=== PATIENT | male | born 1960 | race Caucasian/White ===

== ENCOUNTER 2019-07-11 05:20 | Day surgery (SDC) | payer OTHER ==
[~2019-07-11] VITALS: Ht 177.8 cm; Wt 91.8 kg
[~2019-07-11 05:20] MED LIST: ASPI-728 PO; CYCLOPENTOLATE HCL 1% 2 ML OPHTHALMIC SOLUTION ONE; KETOROLAC TROMETHAMINE 0.5% 5 ML OPHTHALMIC SOLUTION ONE; MOXIFLOXACIN HCL 0.5% 3 ML OPHTHALMIC SOLUTION ONE; PHENYLEPHRINE HCL 2.5% 2 ML OPHTHALMIC SOLUTION ONE; RINGERS SOLUTION,LACTATED 500 ML IV ONE; TETRACAINE HCL/PF 0.5% 4 ML OPHTHALMIC SOLUTION ONE; TROPICAMIDE 1% 2 ML OPHTHALMIC SOLUTION ONE
[2019-07-11] MEDS ORDERED: MIDAZOLAM HCL 2 MG/2 ML VIAL IVP ONE (05:21)
[2019-07-11] MEDS ORDERED: FentaNYL CITRATE-PF 100 MCG/2 ML VIAL IVP ONE (05:21)
[2019-07-11] MEDS ORDERED: HYALURONATE SODIUM 12 MG/ML 0.8 ML SYRINGE IO ONE (05:21)
[2019-07-11] MEDS ORDERED: NEOMYCIN/POLYMYXIN B/DEXAMETH 3.5 GM OPHTHALMIC OINTMENT OS ONE (05:21)
[2019-07-11] MEDS ORDERED: LIDOCAINE/PF 1% 2 ML VIAL IM ONE (05:21)
[2019-07-11] MEDS ORDERED: POVIDONE-IODINE 10% 15 ML SOLUTION UD TP ONE (05:21)
[2019-07-11] MEDS ORDERED: EPINEPHrine 1:1,000 [1 MG/ML] AMP IM ONE (05:21)
[2019-07-11] MEDS ORDERED: RINGERS SOLUTION,LACTATED 500 ML IV ONE (05:30)
[2019-07-11] MEDS: TROPICAMIDE 1% 2 ML OPHTHALMIC SOLUTION OD SCH ×3 (05:58→06:08)
[2019-07-11] MEDS: CYCLOPENTOLATE HCL 1% 2 ML OPHTHALMIC SOLUTION OD SCH ×3 (05:58→06:08)
[2019-07-11] MEDS: PHENYLEPHRINE HCL 2.5% 2 ML OPHTHALMIC SOLUTION OD SCH ×3 (05:58→06:08)
[2019-07-11] MEDS: KETOROLAC TROMETHAMINE 0.5% 5 ML OPHTHALMIC SOLUTION OD SCH ×3 (05:58→06:08)
[2019-07-11] MEDS: MOXIFLOXACIN HCL 0.5% 3 ML OPHTHALMIC SOLUTION OD SCH ×3 (05:59→06:08)
[2019-07-11] MEDS ORDERED: TETRACAINE HCL/PF 0.5% 4 ML OPHTHALMIC SOLUTION OD ONE (06:00)
== END 2019-07-11 08:30 | disposition home or self-care (01) ==
LOC: SURGERY 05:20
PROVIDERS: ATTEND Ophthalmology
DX: H26.8 Other specified cataract (principal); E66.3 Overweight; Z68.29 Body mass index [BMI] 29.0-29.9, adult; F17.210 Nicotine dependence, cigarettes, uncomplicated; Z79.899 Other long term (current) drug therapy; Z72.89 Other problems related to lifestyle
CPT/HCPCS: 66984; 93005; J0171; J2250; J3010; J3490 ×2; J7120; V2632